=== PATIENT | male | born 1995 | race Caucasian/White ===

== ENCOUNTER 2025-09-14 10:36 | Emergency (ER) | payer BC ==
[~2025-09-14] VITALS: Ht 190.5 cm; Wt 67.1 kg
[2025-09-14 11:03] VITALS: BP 129/72; TEMP 98.1
[2025-09-14 12:35] VITALS: O2SAT 100
== END 2025-09-14 12:37 | disposition home or self-care (01) ==
LOC: ER 10:50
DX: S02.641A Fracture of ramus of right mandible, initial encounter for closed fracture (principal); Y08.89XA Assault by other specified means, initial encounter; Y93.89 Activity, other specified; Y92.89 Other specified places as the place of occurrence of the external cause; Y99.8 Other external cause status
CPT/HCPCS: 70450-TC; 70486-TC